=== PATIENT | female | born 1955 | race Caucasian/White ===

== ENCOUNTER 2017-04-03 21:43 | Emergency (ER) | payer BC ==
[~2017-04-03] VITALS: Ht 160 cm; Wt 63.6 kg
[2017-04-03 22:22] LABS: HEMATOCRIT 41.3 % (37.0-47.0); HEMOGLOBIN 13.1 g/dL (12.5-16.0); MEAN CELL VOLUME 88 fl (78-100); MEAN CORPUSCULAR HEMOGLOBIN 28 pg (27-31); MEAN CORPUSCULAR HGB CONC 32 g/dL (33-37); MEAN PLATELET VOLUME 10.6 fl (7.4-10.4); PLATELET COUNT 247 K/mm3 (130-400); RED BLOOD COUNT 4.72 M/mm3 (4.10-5.30); RED CELL DISTRIBUTION WIDTH 13.7 % (11.5-14.5); WHITE BLOOD COUNT 5.8 K/mm3 (4.8-10.8)
[2017-04-03 22:34] LABS: ALBUMIN 4.1 g/dL (3.5-5.0); BUN/CREATININE RATIO 21.8 (6.0-26.0); CALCIUM 9.2 mg/dL (8.4-10.2); POTASSIUM 3.4 mmol/L (3.6-5.0); TOTAL BILIRUBIN 0.2 mg/dL (0.2-1.3); TOTAL PROTEIN 7.1 g/dL (6.3-8.2)
[2017-04-03 22:37] LABS: BAND 4 % (0-10); CKMB ISOENZYME 1.8 ng/mL (0.6-3.5); LYMPHOCYTE 59 % (20-51); MONOCYTE 8 % (3-10); NEUTROPHILS 26 % (42-75)
[2017-04-03 22:42] LABS: TROPONIN-I < 0.03 ng/mL (0.00-0.06)
[2017-04-03 22:43] LABS: PARTIAL THROMBOPLASTIN TIME 23.1 SECONDS (21.0-32.0); PROTHROMBIN TIME 9.4 SECONDS (9.0-12.0)
[2017-04-03] MEDS ORDERED: MULTIVITAMIN1 SGL PO (23:03)
[2017-04-03] MEDS ORDERED: FISH OIL1 IU PO (23:04)
[2017-04-03] MEDS ORDERED: PROBIOTIC1 EAC2 PO (23:04)
[2017-04-03] MEDS ORDERED: BIOTIN1 M1 PO (23:04)
[2017-04-03] MEDS ORDERED: NEIGHBOR P PO (23:04)
[2017-04-03] MEDS ORDERED: MAGNESIUM ELEME30 MG (23:05)
[2017-04-04 01:43] LABS: URINE APPEARANCE CLEAR; URINE BILIRUBIN NEGATIVE (NEGATIVE); URINE BLOOD NEGATIVE (NEGATIVE); URINE COLOR YELLOW; URINE GLUCOSE NEGATIVE (NEGATIVE); URINE KETONE NEGATIVE (NEGATIVE); URINE LEUKOCYTE ESTERASE NEGATIVE (NEGATIVE); URINE NITRATE NEGATIVE (NEGATIVE); URINE PROTEIN(semi-quant) NEGATIVE (NEGATIVE); URINE UROBILINOGEN NORMAL (NORMAL); URINE WBC 0-1 /hpf (0-3)
[2017-04-04 01:46] LABS: CKMB ISOENZYME 1.6 ng/mL (0.6-3.5)
[2017-04-04 01:51] LABS: TROPONIN-I < 0.03 ng/mL (0.00-0.06)
[2017-04-04 02:24] VITALS: BP 114/64
== END 2017-04-04 02:24 | disposition home or self-care (01) ==
LOC: ED 21:43
PROVIDERS: Nurse Practitioner
DX: M25.512 Pain in left shoulder (principal); R07.9 Chest pain, unspecified; Z85.038 Personal history of other malignant neoplasm of large intestine; Z88.1 Allergy status to other antibiotic agents; R11.0 Nausea; R07.1 Chest pain on breathing; Z90.49 Acquired absence of other specified parts of digestive tract